=== PATIENT | male | born 1970 | race African-American/Black ===

== ENCOUNTER 2020-12-20 10:01 | Emergency (ER) | payer BC, OTHER ==
[~2020-12-20] VITALS: Ht 195.6 cm; Wt 102.1 kg
[2020-12-20] MEDS ORDERED: NORVASC5 MG PO (10:44)
[2020-12-20 11:26] VITALS: BP 160/104
--- NOTE | 2020-12-20 14:33 | EKG ---
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
== END 2020-12-20 11:26 | disposition home or self-care (01) ==
LOC: ER 10:01
DX: I10 Essential (primary) hypertension (principal)